=== PATIENT | female | born 1955 | race Caucasian/White ===

== ENCOUNTER 2023-03-02 06:11 | Inpatient (IN) | payer MEDICARE ==
[2023-03-02] VITALS (17 sets, daily range): BP systolic 106–145; BP diastolic 66–88
[~2023-03-02] VITALS: Ht 162.6 cm; Wt 55.6 kg
[~2023-03-02 06:11] MED LIST: AMLO5 PO; ASPI81CH PO; Acetaminophen650 M1 PO; ERGO400 PO; HYDCHL25 PO; METO50ER PO
[2023-03-02] MEDS ORDERED: INBRIJA42 M1 (06:35)
--- NOTE | 2023-03-02 07:58 | NUR ---
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 ABLE TO STAND BRIEFLY ON SCALE. DENIES NEED TO VOID. History, Chart, Medications and Allergies reviewed before start of procedure.Patient confirms NPO status and agrees with scheduled surgery. Patient States Post-Procedure ride home has been arranged. 0730: PT ABLE TO TRANSFER HERSELF TO [facility] BUT UNABLE TO VOID 0740: DR. HARPER AT TO DO INTERSCALENE BLOCK. TIME OUT PREFORMED.
--- NOTE | 2023-03-02 11:37 | NUR ---
PATIENT CAME BACK FROM PACU TODAY AT 1130. POD 0 RIGHT TOTAL SHOULDER PATIENT IS DROWSY BUT WITH VERBAL STIMULI SHE IS ABLE TO RESPOND TO QUESTIONS APPROPRIATELY. HER RIGHT SHOULDER HAS FAOM TAPE WITH GAUZE THAT IS C/D/I WELL IN A SLING. SHE REPORTS SLIGHT NUMBNESS TO HER RIGHT FINGERS BUT IS ABLE TO MOVE ALL FINGERS AND TOES WHEN ASKED. PEDAL AND RADIAL PULSES ARE STRONG. SHE IS TOLERATING A SMALL AMOUNT OF PO INTAKE AT THIS TIME. AT BEDSIDE. CALL LIGHT WITHIN REACH.
[2023-03-02] MEDS ORDERED: Sinemet 25-1001 EACH PO (12:15)
--- NOTE | 2023-03-02 14:53 | NUR ---
SHIFT SUMMARY: POD 0 RIGHT SHOULDER REPAIR PATIENT IS MORE AWAKE THIS AFTERNOON. SHE IS A&OX4. VS ARE WNL AND IS ON RA. PATIENT DENIES PAIN AND HAS REFUSED PAIN MEDICATION AT THIS TIME. PATIENT STILL REPORTS NUMBNESS ON HER RIGHT HAND BUT IS ABLE TO MOVE ALL FINGERS AND TOES WHEN ASKED. RADIAL AND PEDAL PULSES ARE STRONG. HER FOAM TAPE WITH GAUZE ON THE RIGHT SHOULDER IS C/D/I AND IN A SLING. PATIENT HAS WORKED WITH PT ONCE SO FAR. SHE IS TOLERATING PO INTAKE. FAMILY IS AT BEDSIDE. CALL LIGHT WITHIN REACH.
--- NOTE | 2023-03-02 16:29 | NUR ---
Pt. is awake in bed and welcomes my visit. Spouse is at bedside. Pt. is pleasant, but displays evidence of being weak, and speaks very softly. Facilitate a life review and establish rapport. Pt. displayed evidence of trust and engagement. Prayed with Pt. Pt. verbalized gratitude for the spiritual care visit.
[2023-03-03 03:08] VITALS: BP 106/76
--- NOTE | 2023-03-03 04:21 | NUR ---
SUMMARY POD1 R SHOULDER SURGERY. GAUZE WITH FOAM TAPE DRESSING TO R SHOULDER. CDI. IMMOBILIZER IN PLACE. REPOSITIONED T/O SHIFT. MEDICATED PER ORDERS AND TOLERATING PO INTAKE. 1 ASSIST W/ GB, TO STAND PIVOT TO BSC TO VOID. AOX4, VSS, CALL LIGHT IN REACH. WILL REPORT TO DAY NURSE.
[2023-03-03 07:23] LABS: BASOPHILS ABSOLUTE AUTO 0.01 K/mm3 (0.00-0.23); BASOPHILS PERCENT AUTO 0 % (0-2); EOSINOPHILS ABSOLUTE AUTO 0.01 K/mm3 (0.00-0.68); EOSINOPHILS PERCENT AUTO 0 % (0-6); Hematocrit 35.8 % (33.0-51.0); Hemoglobin 12.1 g/dL (11.5-16.0); IMMATURE GRAN ABSOLUTE AUTO 0.02 K/mm3 (0.00-0.10); IMMATURE GRAN PERCENT AUTO 0 % (0-1); LYMPHOCYTES ABSOLUTE AUTO 2.69 K/mm3 (0.84-5.20); LYMPHOCYTES PERCENT AUTO 27 % (21-46); MONOCYTES ABSOLUTE AUTO 0.73 K/mm3 (0.16-1.47); MONOCYTES PERCENT AUTO 7 % (4-13); Mean Corpuscular HGB 32.9 pg (26.0-34.0); Mean Corpuscular HGB Conc 33.8 g/dL (31.5-36.5); Mean Corpuscular Volume 97 fL (80-100); Mean Platelet Volume 8.8 fL (9.1-12.4); NEUTROPHILS ABSOLUTE AUTO 6.43 K/mm3 (1.96-9.15); NEUTROPHILS PERCENT AUTO 65 % (41-73); Platelet Count 226 K/mm3 (150-400); RDW Coefficient Variation 12.2 % (11.7-14.2); RDW Standard Deviation 43.8 fL (35.1-46.3); Red Blood Cell Count 3.68 M/mm3 (3.80-5.20); White Blood Cell Count 9.89 K/mm3 (4.00-11.30)
[2023-03-03 07:45] LABS: Bun/Creatinine Ratio 18.2 (12.0-20.0); Calcium, Blood 8.9 mg/dL (8.5-10.1); Creatinine, Blood 0.93 mg/dL (0.40-1.00); Potassium, Blood 3.4 mmol/L (3.5-5.5)
[2023-03-03 08:15] VITALS: BP 111/69
[2023-03-03] MEDS ORDERED: OXAYDO5 M1 PO (10:24)
--- NOTE | 2023-03-03 11:44 | NUR ---
1780 discharge instructions reviewed with patient, patients and patients son. patient and family in agreement with plan to discharge home with home health follow up. sling in place to right arm. right shoulder dressing clean, dry and intact.pt provided with aquacell dressings at discharge. pt denies need for pain medications.
== END 2023-03-03 11:30 | disposition home or self-care (01) | DRG 483 ==
LOC: SURS 06:11 → PRE IP 07:30 → SURS 11:16
PROVIDERS: ADMIT Orthopaedic Surgery
PROC: 0RRJ00Z Replacement of Right Shoulder Joint with Reverse Ball and Socket Synthetic Substitute, Open Approach (ICD-10-PCS; principal; 2023-03-02 07:30)
DX: M19.011 Primary osteoarthritis, right shoulder (principal); I10 Essential (primary) hypertension; M54.9 Dorsalgia, unspecified; M75.121 Complete rotator cuff tear or rupture of right shoulder, not specified as traumatic; G89.29 Other chronic pain; Z90.89 Acquired absence of other organs
CPT/HCPCS: 36415; 73030; 80048; 83735; 85025; 94760; 97110; 97162; 97166; 97530; 97535; A9270; C1713; C1776; J0690; J0696; J1100; J1885; J2250; J2370; J2405; J2704; J2795; J3010; J7120